=== PATIENT | male | born 1995 | race Two or more races ===

== ENCOUNTER 2025-03-18 00:09 | Emergency (ER) | payer OTHER ==
[~2025-03-18] VITALS: Ht 162.6 cm; Wt 86.4 kg
[2025-03-18 01:06] LABS: PLATELET COUNT (AUTO) 299 K/uL (150-450); RED BLOOD CELL COUNT(AUTO) 5.22 MIL/uL (4.50-5.90); RED CELL DISTRIBUTION WIDTH 13.9 % (11.5-14.5); WHITE BLOOD COUNT (AUTO) 11.9 K/uL (4.5-11.0)
[2025-03-18 01:17] LABS: CALCIUM, TOTAL 9.0 mg/dL (8.8-10.5); CREATININE 1.17 mg/dL (0.60-1.30); GLOMERULAR FILTR. RATE CALC > 60 mL/min (>60); GLUCOSE,RANDOM 139 mg/dL (70-110); SODIUM SERUM 146 mmol/L (136-145); UREA NITROGEN, BLOOD 12 mg/dL (7-18)
[2025-03-18 01:18] LABS: ALCOHOL, BLOOD (SERUM) 289.0 mg/dL (0-10)
[2025-03-18 01:23] LABS: ASPARTATE AMINOTRANSFERASE 37.0 U/L (15-37); TOTAL PROTEIN, SERUM 7.7 g/dL (6.4-8.2)
[2025-03-18 05:20] VITALS: BP 138/79; PULSE 76; RESP 16; TEMP 97.9; O2SAT 98
== END 2025-03-18 05:20 | disposition home or self-care (01) ==
LOC: EMS 00:11
DX: F10.129 Alcohol abuse with intoxication, unspecified (principal); Y90.8 Blood alcohol level of 240 mg/100 ml or more
CPT/HCPCS: 99283; 80048; 80076; 85025; 36415; G0480